=== PATIENT | male | born 1955 | race African-American/Black ===

== ENCOUNTER 2016-09-11 22:25 | Emergency (ER) | payer SELFPAY ==
[2016-09-11 22:42] VITALS: BP 137/101
[2016-09-11 23:20] LABS: Hematocrit 49.7 % (35.5-45.6); Hemoglobin 17.2 gm/dl (11.8-15.2); Mean Corpuscular HGB Conc 35 % (32-34); Mean Corpuscular Hemoglobin 30 pg (28-32); Mean Corpuscular Volume 87 fl (84-94); Platelet Count 283 K/mm3 (140-440); Red Blood Count 5.74 M/mm3 (3.65-5.03); Red Cell Distribution Width 13.5 % (13.2-15.2); White Blood Count 10.5 K/mm3 (4.5-11.0)
[2016-09-11 23:31] LABS: BUN/Creatinine Ratio 19.41; Calcium 9.3 mg/dL (8.4-10.2); Chloride 103.4 mmol/L (98-107); Potassium 4.5 mmol/L (3.6-5.0)
--- NOTE | 2016-09-16 20:45 | ED Elopement Review ---
ED Pt Elopement review - Results review Lab results: Laboratory Tests 09/11/16 09/11/16 23:01 23:01 WBC 10.5 RBC 5.74 H Hgb 17.2 H Hct 49.7 H MCV 87 MCH 30 MCHC 35 H RDW 13.5 Plt Count 283 Sodium 140 Potassium 4.5 Chloride 103.4 Carbon Dioxide 19 L Anion Gap 22 BUN 33 H Creatinine 1.7 H Estimated GFR 41 BUN/Creatinine Ratio 19.41 Glucose 127 H Calcium 9.3 - Call Back decision Pt Call Back Decision: Pt to F/U with PMD ()
== END 2016-09-11 23:15 | disposition left against medical advice (07) ==
LOC: ED 22:25
DX: E87.6 Hypokalemia (principal); Z53.21 Procedure and treatment not carried out due to patient leaving prior to being seen by health care provider
CPT/HCPCS: 36415; 80048; 85027; 93005; 93010

== ENCOUNTER 2016-12-21 11:47 | Outpatient (CLI) | payer OTHER | END 2016-12-21 11:48 | disposition home or self-care (01) | LOC: LAB 11:47 | PROVIDERS: ATTEND Internal Medicine Nephrology | DX: E87.5 Hyperkalemia (principal) | CPT/HCPCS: 36415; 84132 ==